=== PATIENT | male | born 1980 | race African-American/Black ===

== ENCOUNTER 2016-11-02 02:11 | Emergency (ER) | payer SELFPAY ==
[2016-11-02] MEDS ORDERED: PENICILLIN V POTASSIUM 500 MG TABLET PO ONE (04:50)
[2016-11-02] MEDS ORDERED: IBUPROFEN 800 MG TABLET PO ONE (04:50)
--- NOTE | 2016-11-02 04:53 | ER Document Report ---
HPI - HPI Patient complains to provider of: dental pain and decay Onset: Other - 1 week Onset/Duration: Gradual, Worse Quality of pain: Throbbing Pain Level: 4 Context: 36 yo male with lower right molar decay and pain for a week, worse last night. Needs it pulled. No facial swelling or fever. Associated Symptoms: None Exacerbated by: Other - chewing Relieved by: Denies Similar symptoms previously: No Recently seen / treated by doctor: No - ROS ROS below otherwise negative: Yes Systems Reviewed and Negative: Yes All other systems reviewed and negative - DERM Skin Color: Normal, [place] Past Medical History - General Information source: Patient - Social History Smoking Status: Current Every Day Smoker Chew tobacco use (# tins/day): No Frequency of alcohol use: None Drug Abuse: None Lives with: Spouse/Significant other Family History: Reviewed & Not Pertinent - Medical History Medical History: Negative Renal/ Medical History: Denies: Hx Peritoneal Dialysis Surgical Hx: Negative Vertical Provider Document - CONSTITUTIONAL Agree With Documented VS: Yes Exam Limitations: No Limitations General Appearance: No Apparent Distress - INFECTION CONTROL TRAVEL OUTSIDE OF THE [place] IN LAST 30 DAYS: No - HEENT HEENT: Normocephalic Notes: decayed molar lower right, no abscess - NECK Neck: Supple. negative: Lymphadenopathy-Left, Lymphadenopathy-Right - RESPIRATORY Respiratory: Breath Sounds Normal, No Respiratory Distress O2 Sat by Pulse Oximetry: 97 - CARDIOVASCULAR Cardiovascular: Regular Rate, Regular Rhythm - NEURO Level of Consciousness: Awake, Alert - DERM Integumentary: Warm, Dry, No Rash Course - Vital Signs Vital signs: Temp Pulse Resp BP Pulse Ox 98.4 F 90 16 129/68 H 97 11/02/16 02:16 11/02/16 02:16 11/02/16 02:16 11/02/16 02:16 11/02/16 02:16 Discharge - Discharge Clinical Impression: dental decay and pain Condition: Good Disposition: HOME, SELF-CARE Instructions: Penicillin V K ([facility]), Toothache ([facility]), Anti-Inflammatory Medication ([facility]), Dentist Additional Instructions: see the dentist Re-Turn to the emergency room any worsening of the symptoms Please complete the patient satisfaction survey if you get one, and return it.. If you do not receive a survey, then you can go to the [facility] website, [email or web address] and place your comments about your very good care. Thank you very much. It was a pleasure being your medical provider today. Prescriptions: Ibuprofen [Motrin 800 mg Tablet] 800 mg PO Q8HP PRN #30 tablet PRN Reason: Penicillin V Potassium [Penicillin Vk 500 mg Tablet] 500 mg PO QID #40 tablet
[2016-11-02 05:46] VITALS: BP 128/67
== END 2016-11-02 05:01 | disposition home or self-care (01) ==
LOC: ER 02:11
DX: K08.89 Other specified disorders of teeth and supporting structures (principal); K02.9 Dental caries, unspecified; F17.200 Nicotine dependence, unspecified, uncomplicated
CPT/HCPCS: 99282

== ENCOUNTER 2017-03-23 14:25 | Emergency (ER) | payer SELFPAY ==
--- NOTE | 2017-03-23 16:27 | ER Document Report ---
ED General - General Chief Complaint: Chest Pain > 30 Stated Complaint: CHEST PAIN Time Seen by Provider: 03/23/17 16:06 Mode of Arrival: Ambulatory Information source: Patient Notes: 36 yr old male smoker presents with sudden right sided pain with deep breathing. pt denies any dvt or pe risk factors. denies any fevers or chills. TRAVEL OUTSIDE OF THE [place] IN LAST 30 DAYS: No - HPI Onset: Just prior to arrival Onset/Duration: Sudden Quality of pain: Sharp Severity: Mild Pain Level: 2 Associated symptoms: Shortness of breath Exacerbated by: Walking, Deep breathing Relieved by: Denies Similar symptoms previously: No Recently seen / treated by doctor: No - Related Data Allergies/Adverse Reactions: No Known Allergies Allergy (Verified 03/23/17 15:01) Past Medical History - Social History Smoking Status: Current Every Day Smoker Cigarette use (# per day): Yes Chew tobacco use (# tins/day): No Smoking Education Provided: No Frequency of alcohol use: None Drug Abuse: None Family History: Reviewed & Not Pertinent Patient has suicidal ideation: No Patient has homicidal ideation: No Renal/ Medical History: Denies: Hx Peritoneal Dialysis Review of Systems - Review of Systems Notes: REVIEW OF SYSTEMS: CONSTITUTIONAL : Denies fever, chills, or sweats. Denies recent illness. EENT: Denies eye, ear, throat, or mouth pain or symptoms. Denies nasal or sinus congestion or discharge. Denies throat, tongue, or mouth swelling or difficulty swallowing. CARDIOVASCULAR: Denies chest pain. Denies palpitations or racing or irregular heart beat. Denies ankle edema. RESPIRATORY: Admits to shortness of breath right-sided chest pain GASTROINTESTINAL: Denies abdominal pain or distention. Denies nausea, vomiting , or diarrhea. Denies blood in vomitus, stools, or per rectum. Denies black, tarry stools. Denies constipation. GENITOURINARY: Denies difficulty urinating, painful urination, burning, frequency, blood in urine, or discharge. MUSCULOSKELETAL: Denies back or neck pain or stiffness. Denies joint pain or swelling. SKIN: Denies rash, lesions or sores. HEMATOLOGIC : Denies easy bruising or bleeding. LYMPHATIC: Denies swollen, enlarged glands. NEUROLOGICAL: Denies confusion or altered mental status. Denies passing out or loss of consciousness. Denies dizziness or lightheadedness. Denies headache. Denies weakness or paralysis or loss of use of either side. Denies problems with gait or speech. Denies sensory loss, numbness, or tingling. Denies seizures. PSYCHIATRIC: Denies anxiety or stress. Denies depression, suicidal ideation, or homicidal ideation. ALL OTHER SYSTEMS REVIEWED AND NEGATIVE. Dictation was performed using [employer] voice recognition software PHYSICAL EXAMINATION: GENERAL: Well-appearing, well-nourished and in no acute distress. HEAD: Atraumatic, normocephalic. EYES: Pupils equal round and reactive to light, extraocular movements intact, sclera anicteric, conjunctiva are normal. ENT: Nares patent, oropharynx clear without exudates. Moist mucous membranes. NECK: Normal range of motion, supple without lymphadenopathy LUNGS: Breath sounds clear to auscultation bilaterally and equal. No wheezes rales or rhonchi. HEART: Regular rate and rhythm without murmurs ABDOMEN: Soft, nontender, nondistended abdomen. No guarding, no rebound. No masses appreciated. Musculoskeletal: Normal range of motion, no pitting or edema. No cyanosis. NEUROLOGICAL: Cranial nerves grossly intact. Normal speech, normal gait. Normal sensory, motor exams PSYCH: Normal mood, normal affect. SKIN: Warm, Dry, normal turgor, no rashes or lesions noted. Physical Exam - Vital signs Vitals: Temp Pulse Resp BP Pulse Ox 98.8 F 62 16 120/73 98 03/23/17 15:02 03/23/17 15:02 03/23/17 15:02 03/23/17 15:02 03/23/17 15:02 Course - Re-evaluation Re-evalutation: 03/23/17 16:27 Chest x-ray has been ordered to rule out pneumothorax, d-dimer ordered to rule out a pulmonary emboli 03/23/17 17:00 chest xray normal, d dimer was negative. pt otherwise looks well , will dc home with close follow up After performing a Medical Screening Examination, I estimate there is LOW risk for ACUTE CORONARY SYNDROME, RESPIRATORY FAILURE, SEPSIS OR MENINGITIS, thus I consider the discharge disposition reasonable. I have reevaluated this patient multiple times and no significant life threatening changes are noted. The patient and I have discussed the diagnosis and risks, and we agree with discharging home with close follow-up. We also discussed returning to the Emergency Department immediately if new or worsening symptoms occur. We have discussed the symptoms which are most concerning (e.g., changing or worsening pain, trouble swallowing or breathing, neck stiffness, fever) that necessitate immediate return. - Vital Signs Vital signs: Temp Pulse Resp BP Pulse Ox 98.8 F 62 16 120/73 98 03/23/17 15:02 03/23/17 15:02 03/23/17 15:02 03/23/17 15:02 03/23/17 15:02 - Diagnostic Test Radiology reviewed: Image reviewed, Reports reviewed - No acute abnormality Discharge - Discharge Clinical Impression: Costochondral chest pain, SOB (shortness of breath) Condition: Stable Disposition: HOME, SELF-CARE Instructions: Chest Wall Pain ([facility]) Additional Instructions: Follow up with your physician tomorrow for further care or return to the ED IMMEDIATELY if symptoms worsen or new concerns occur. If you cannot afford to follow up with your primary care physician a list of low cost clinics have been provided at the end of your discharge papers as well. Prescriptions: Ketorolac Tromethamine [Toradol 10 mg Tablet] 10 mg PO Q8HP PRN #14 tablet PRN Reason:
--- NOTE | 2017-03-23 16:54 | EKG REPORT ---
SEVERITY:- NORMAL ECG - SINUS RHYTHM ST ELEV, PROBABLE NORMAL EARLY REPOL PATTERN : Confirmed by: Francisco J Garzon MD 23-Mar-2017 16:53:32
--- NOTE | 2017-03-23 16:56 | RADIOLOGY REPORT (SQ) ---
EXAM DESCRIPTION: CHEST PA/LAT COMPLETED DATE/TIME: 03/23/2017 4:33 pm REASON FOR STUDY: right sided pain sob COMPARISON: None. EXAM PARAMETERS: NUMBER OF VIEWS: two views TECHNIQUE: Digital Frontal and Lateral radiographic views of the chest acquired. RADIATION DOSE: NA LIMITATIONS: none FINDINGS: LUNGS AND PLEURA: No opacities, masses or pneumothorax. No pleural effusion. MEDIASTINUM AND HILAR STRUCTURES: No masses or contour abnormalities. HEART AND VASCULAR STRUCTURES: Heart normal size. No evidence for failure. BONES: No acute findings. HARDWARE: None in the chest. OTHER: No other significant finding. IMPRESSION: NO SIGNIFICANT RADIOGRAPHIC FINDING IN THE CHEST. TECHNICAL DOCUMENTATION: JOB ID: [id number] [employer]- All Rights Reserved
[2017-03-23] MEDS ORDERED: KETOROLAC TROMETHAMINE 60 MG/2 ML SDV IM ONE (17:02)
[2017-03-23 17:36] VITALS: BP 119/97
== END 2017-03-23 17:10 | disposition home or self-care (01) ==
LOC: ER 14:25
DX: R07.1 Chest pain on breathing (principal); R06.02 Shortness of breath; F17.210 Nicotine dependence, cigarettes, uncomplicated
CPT/HCPCS: 93005; 99285; 96372; 36415; 85379; 71020; 93010; J1885

== ENCOUNTER 2017-10-29 02:32 | Emergency (ER) | payer SELFPAY ==
[2017-10-29] MEDS ORDERED: OXYCODONE-ACETAMINOPHEN 5-325 MG TABLET PO ONE (06:03)
[2017-10-29] MEDS ORDERED: ONDANSETRON 4 MG TAB.RAPDIS PO ONE (06:03)
[2017-10-29] MEDS ORDERED: PENICILLIN V POTASSIUM 500 MG TABLET PO ONE (06:03)
--- NOTE | 2017-10-29 06:05 | ER Document Report ---
HPI - HPI Patient complains to provider of: dental pain Pain Level: 5 Context: Patient is a 37-year-old male comes emergency department for chief complaint of dental pain on the left side since yesterday. He states he has had dental fractures, infections in the past, states he came for antibiotics. He does not have a dentist, also asked for referral. Patient denies difficulty swallowing, fever, neck pain, or any other complaints. He takes no daily medications. No recent antibiotics for dental infection. - CONSTITUTIONAL Constitutional: DENIES: Fever, Chills - EENT EENT: DENIES: Sore Throat, Ear Pain, Eye problems - NEURO Neurology: DENIES: Headache, Weakness, Vision blurred, Dizzinesss / Vertigo - CARDIOVASCULAR Cardiovascular: DENIES: Chest pain - RESPIRATORY Respiratory: DENIES: Trouble Breathing, Coughing - GASTROINTESTINAL Gastrointestinal: DENIES: Abdominal Pain, Black / Bloody Stools - URINARY Urinary: DENIES: Dysuria, Urgency, Frequency - MUSCULOSKELETAL Musculoskeletal: DENIES: Extremity pain Past Medical History - General Information source: Patient - Social History Smoking Status: Current Some Day Smoker Drug Abuse: None Lives with: Family Family History: Reviewed & Not Pertinent Patient has suicidal ideation: No Patient has homicidal ideation: No - Medical History Medical History: Negative Renal/ Medical History: Denies: Hx Peritoneal Dialysis Surgical Hx: Negative - Immunizations Hx Diphtheria, Pertussis, Tetanus Vaccination: Yes Vertical Provider Document - CONSTITUTIONAL General Appearance: WD/WN, Mild Distress - Patient holding the left side of his face - INFECTION CONTROL TRAVEL OUTSIDE OF THE [place] IN LAST 30 DAYS: No - HEENT HEENT: Atraumatic, Normocephalic Mouth Diagram: 1 - Dental caries with mild erythema of the gumline, no swelling, induration, fluctuance, or other abnormality noted - NECK Neck: Normal Inspection - RESPIRATORY Respiratory: Breath Sounds Normal, No Respiratory Distress O2 Sat by Pulse Oximetry: 98 - CARDIOVASCULAR Cardiovascular: Regular Rate, Regular Rhythm - GI/ABDOMEN Gastrointestinal: Abdomen Soft, Abdomen Non-Tender - NEURO Level of Consciousness: Awake, Alert, Appropriate - DERM Integumentary: Warm, Dry, No Rash Course - Vital Signs Vital signs: Temp Pulse Resp BP Pulse Ox 97.9 F 66 18 145/89 H 98 10/29/17 02:47 10/29/17 02:47 10/29/17 02:47 10/29/17 02:47 10/29/17 02:47 Discharge - Discharge Clinical Impression: Dental infection Condition: Stable Disposition: HOME, SELF-CARE Additional Instructions: Your evaluation is consistent with a dental infection. Take the penicillin as prescribed. Follow-up with the dental referral for additional evaluation and management. Return if you worsen including swelling of the face or any other concerning symptoms. Prescriptions: Penicillin V Potassium [Penicillin Vk 500 mg Tablet] 500 mg PO BID #20 tablet Forms: Return to Work, Elevated Blood Pressure Referrals: [facility] [Provider Group] - Follow up in 1 week
[2017-10-29] MEDS ORDERED: HYDROCODONE/ACETAMINOPHEN 5-325 MG (6 TAB/ER DISP) PO PRN (06:06)
[2017-10-29 06:20] VITALS: BP 140/80
== END 2017-10-29 06:27 | disposition home or self-care (01) ==
LOC: ER 02:32
DX: K04.7 Periapical abscess without sinus (principal); K02.9 Dental caries, unspecified; K08.89 Other specified disorders of teeth and supporting structures
CPT/HCPCS: 99282; S0119

== ENCOUNTER 2017-11-03 06:53 | Emergency (ER) | payer SELFPAY ==
[2017-11-03 07:02] VITALS: BP 149/87
[2017-11-03] MEDS ORDERED: BUPIVACAINE HCL 0.25% /EPINEPHRINE INJ/PF 30 ML SDV INFIL PRN (07:30)
[2017-11-03] MEDS ORDERED: CLINDAMYCIN HCL 150 MG CAPSULE PO ONE (07:38)
--- NOTE | 2017-11-03 07:38 | ER Document Report ---
ED Oral Problem - General Chief Complaint: Toothache Stated Complaint: TOOTH PAIN Time Seen by Provider: 11/03/17 07:11 Mode of Arrival: Ambulatory Information source: Patient Notes: Patient is a 37-year-old male who presents to the ER today for left lower dental swelling and pain. Patient has been seen here in the emergency department and placed on penicillin, given hydrocodone which she states has not been helping. He was seen here 5 days ago. Patient does not have a dentist. He denies any difficulty swallowing or breathing. He admits to tasting a "bad taste" inside his mouth. TRAVEL OUTSIDE OF THE [place] IN LAST 30 DAYS: No - Related Data Allergies/Adverse Reactions: No Known Allergies Allergy (Verified 03/23/17 15:01) Past Medical History - General Information source: Patient - Social History Smoking Status: Current Some Day Smoker Chew tobacco use (# tins/day): No Frequency of alcohol use: Occasional Drug Abuse: None Family History: Reviewed & Not Pertinent Patient has suicidal ideation: No Patient has homicidal ideation: No Renal/ Medical History: Denies: Hx Peritoneal Dialysis - Immunizations Hx Diphtheria, Pertussis, Tetanus Vaccination: Yes Review of Systems - Review of Systems Constitutional: No symptoms reported EENT: See HPI Cardiovascular: No symptoms reported Respiratory: No symptoms reported Gastrointestinal: No symptoms reported Genitourinary: No symptoms reported Male Genitourinary: No symptoms reported Musculoskeletal: No symptoms reported Skin: No symptoms reported Hematologic/Lymphatic: No symptoms reported Neurological/Psychological: No symptoms reported Physical Exam - Vital signs Vitals: Temp Pulse Resp BP Pulse Ox 97.4 F 68 18 149/87 H 100 11/03/17 07:01 11/03/17 07:01 11/03/17 07:01 11/03/17 07:01 11/03/17 07:01 - Notes Notes: PHYSICAL EXAMINATION: GENERAL: Uncomfortable appearing, but in no acute distress. HEAD: Atraumatic, normocephalic. EYES: Pupils equal round and reactive to light, extraocular movements intact, sclera anicteric, conjunctiva are normal. ENT: oropharynx clear without exudates. Moist mucous membranes. dental caries, poor dentition, edema and tenderness to left lower tooth #19, no obvious fluctuance or induration, drainage NECK: Normal range of motion, supple without lymphadenopathy LUNGS: CTAB and equal. No wheezes rales or rhonchi. HEART: Regular rate and rhythm without murmurs EXTREMITIES: Normal range of motion, no pitting edema. No cyanosis. NEUROLOGICAL: Cranial nerves grossly intact. Normal sensory/motor exams. PSYCH: Normal mood, normal affect. SKIN: Warm, Dry, normal turgor, no rashes or lesions noted Course - Vital Signs Vital signs: Temp Pulse Resp BP Pulse Ox 97.4 F 68 18 149/87 H 100 11/03/17 07:01 11/03/17 07:01 11/03/17 07:01 11/03/17 07:01 11/03/17 07:01 Procedures - Additional Procedures dental block Time performed: 08:13 Additional Procedures: Other - local dental block with bupivacaine/epi 0.5%, 4cc to buccal fold/gum line at tooth #19, pt tolerated well, nothing was able to be aspirated Discharge - Discharge Clinical Impression: Dental infection Condition: Stable Disposition: HOME, SELF-CARE Additional Instructions: Return immediately for any new or worsening symptoms. Follow up with dentist, call tomorrow to make followup appointment. Prescriptions: Clindamycin HCl 300 mg PO TID #30 capsule Naproxen 500 mg PO BID #30 tablet Referrals: [facility] [Provider Group] - Follow up as needed
[2017-11-03] MEDS ORDERED: BUPIVACAINE HCL 0.5%-EPI 1:200000 INJ/PF 30 ML VIAL INJ ONE ×2 (07:50→08:30)
== END 2017-11-03 08:32 | disposition home or self-care (01) ==
LOC: ER 06:53
DX: K04.7 Periapical abscess without sinus (principal); K08.89 Other specified disorders of teeth and supporting structures; F17.200 Nicotine dependence, unspecified, uncomplicated
CPT/HCPCS: 99282; 64400; J3490

== ENCOUNTER 2017-11-10 21:51 | Emergency (ER) | payer SELFPAY ==
[2017-11-10 21:56] VITALS: BP 145/92
--- NOTE | 2017-11-11 00:10 | ER Document Report ---
ED Medical Screen (RME) - General Chief Complaint: Nausea/Vomiting Stated Complaint: VOMITING Time Seen by Provider: 11/11/17 00:08 Mode of Arrival: Ambulatory Information source: Patient Notes: 37-year-old male presented to ED for complaint of abdominal pain nausea vomiting fever and chills. He states that a week ago he was seen for dental pain. He was started on antibiotics and pain medications. He states about 4 days ago he came in and got new antibiotics because the first ones were not working. Yesterday he went to help and they did help and then started having vomiting abdominal pain chills and shivering. He states he stopped his pain medicine and his antibiotics in the day he has had no vomiting no pain medicines and no antibiotics. I have greeted and performed a rapid initial assessment of this patient. A comprehensive ED assessment and evaluation of the patient, analysis of test results and completion of medical decision making process will be conducted by an additional ED providers. TRAVEL OUTSIDE OF THE [place] IN LAST 30 DAYS: No - Related Data Allergies/Adverse Reactions: No Known Allergies Allergy (Verified 03/23/17 15:01) Past Medical History Renal/ Medical History: Denies: Hx Peritoneal Dialysis - Immunizations Hx Diphtheria, Pertussis, Tetanus Vaccination: Yes Physical Exam - Vital signs Vitals: Temp Pulse Resp BP Pulse Ox 98.3 F 86 20 145/92 H 98 11/10/17 21:55 11/10/17 21:55 11/10/17 21:55 11/10/17 21:55 11/10/17 21:55 Course - Vital Signs Vital signs: Temp Pulse Resp BP Pulse Ox 98.3 F 86 20 145/92 H 98 11/10/17 21:55 11/10/17 21:55 11/10/17 21:55 11/10/17 21:55 11/10/17 21:55
[2017-11-11] MEDS ORDERED: ONDANSETRON 4 MG TAB.RAPDIS PO ONE (00:11)
[2017-11-11] MEDS ORDERED: NORMAL SALINE 1000 ML 1,000 ML IV ONE (00:19)
[2017-11-11] MEDS ORDERED: ONDANSETRON HCL INJ/PF 4 MG/2 ML SDV IV ONE (00:19)
[2017-11-11 01:30] LABS: ALANINE AMINOTRANSFERASE 35 U/L (21-72); ALBUMIN 4.8 g/dL (3.5-5.0); ALKALINE PHOSPHATASE 48 U/L (38-126); ANION GAP 10 (5-19); ASPARTATE AMINO TRANSFERASE 29 U/L (17-59); BILIRUBIN,DIRECT 0.5 mg/dL (0.0-0.4); BILIRUBIN,TOTAL 0.5 mg/dL (0.2-1.3); BLOOD UREA NITROGEN 21 mg/dL (7-20); CALCIUM 10.1 mg/dL (8.4-10.2); CARBON DIOXIDE 29 mmol/L (22-30); CHLORIDE 104 mmol/L (98-107); GLUCOSE 90 mg/dL (75-110); LIPASE 72.9 U/L (23-300); POTASSIUM 4.3 mmol/L (3.6-5.0); SODIUM 143.1 mmol/L (137-145)
[2017-11-11] MEDS ORDERED: BENZONATATE 100 MG CAPSULE PO ONE (01:31)
[2017-11-11] MEDS ORDERED: KETOROLAC TROMETHAMINE INJ/PF 30 MG/1 ML SDV IV ONE (01:31)
--- NOTE | 2017-11-11 01:35 | ER Document Report ---
ED General - General Chief Complaint: Jaw Pain Stated Complaint: Nausea Time Seen by Provider: 11/11/17 00:08 Mode of Arrival: Ambulatory Notes: Patient is a 37-year-old male without past medical history recently seen in the emergency department for infected left posterior mandibular tooth with associated pain. Patient reports that he has been taking the clindamycin as prescribed continues to have ongoing throbbing, constant, aching pain to the molar. He reports that he has been using naproxen and Tylenol with moderate improvement of the pain. Nothing worsens the pain other than eating. He has a scheduled follow-up with a dentist states that they informed him that the antibiotic course needed to be completed before they could remove the tooth. He notes that he has had general muscle aches chills intermittently which prompted him to return to the emergency department. He has not had a recorded fever. He denies vomiting but notes that he has been nauseated. He denies any headache, neck pain, altered mental status, or meningismus. TRAVEL OUTSIDE OF THE [place] IN LAST 30 DAYS: No - Related Data Allergies/Adverse Reactions: No Known Allergies Allergy (Verified 03/23/17 15:01) Past Medical History - General Information source: Patient - Social History Smoking Status: Never Smoker Frequency of alcohol use: None Drug Abuse: None Lives with: Family Family History: Reviewed & Not Pertinent Patient has suicidal ideation: No Patient has homicidal ideation: No Renal/ Medical History: Denies: Hx Peritoneal Dialysis - Immunizations Hx Diphtheria, Pertussis, Tetanus Vaccination: Yes Review of Systems - Review of Systems Notes: Constitutional: Negative for fever, positive for chills HENT: Negative for sore throat, positive for dental pain Eyes: Negative for visual changes. Cardiovascular: Negative for chest pain. Respiratory: Negative for shortness of breath. Gastrointestinal: Positive for nausea Genitourinary: Negative for dysuria. Musculoskeletal: Negative for back pain. Skin: Negative for rash. Neurological: Negative for headaches, weakness or numbness. 10 point ROS negative except as marked above and in HPI. Physical Exam - Vital signs Vitals: Temp Pulse Resp BP Pulse Ox 98.3 F 86 20 145/92 H 98 11/10/17 21:55 11/10/17 21:55 11/10/17 21:55 11/10/17 21:55 11/10/17 21:55 Interpretation: Hypertensive Notes: PHYSICAL EXAMINATION: GENERAL: Well-appearing, well-nourished and in no acute distress. HEAD: Atraumatic, normocephalic. EYES: Pupils equal round and reactive to light, extraocular movements intact, sclera anicteric, conjunctiva are normal. ENT: nares patent, oropharynx clear without exudates. No oropharyngeal edema or swelling. Moderately dry mucous membranes. The right most posterior left mandibular molar has a cracking and some mild swelling at the gumline without any obvious fluid collection NECK: Normal range of motion, supple without lymphadenopathy LUNGS: Breath sounds clear to auscultation bilaterally and equal. No wheezes rales or rhonchi. HEART: Regular rate and rhythm without murmurs ABDOMEN: Soft, nontender, normoactive bowel sounds. No guarding, no rebound. No masses appreciated. EXTREMITIES: Normal range of motion, no pitting or edema. No cyanosis. NEUROLOGICAL: No focal neurological deficits. Moves all extremities spontaneously and on command. PSYCH: Normal mood, normal affect. SKIN: Warm, Dry, normal turgor, no rashes or lesions noted. Course - Re-evaluation Re-evalutation: 11/11/17 01:32 Patient presents with nausea, ongoing dental pain, and feeling generally unwell for the past several days. Patient is being treated with clindamycin currently for an infected left lower molar. He is otherwise nontoxic in appearance, vitals within normal limits, no vomiting or diarrhea. Physical examination is notable only for an obviously infected left mandibular posterior molar infection without any airway compromise, evidence of Familia angina or significant neck swelling or induration. I inserted the patient continue to take clindamycin as prescribed, follow up with dentistry, and have provided him with analgesic support here in the emergency department. At this time will discharge with return precautions and follow-up recommendations. Verbal discharge instructions given a the bedside and opportunity for questions given. Medication warnings reviewed. Patient is in agreement with this plan and has verbalized understanding of return precautions and the need for primary care follow-up in the next 24-72 hours. - Vital Signs Vital signs: Temp Pulse Resp BP Pulse Ox 98.3 F 86 20 145/92 H 98 11/10/17 21:55 11/10/17 21:55 11/10/17 21:55 11/10/17 21:55 03/26/18 21:55 - Laboratory Result Diagrams: 11/11/17 00:32 Laboratory results interpreted by me: 11/11/17 00:32 BUN 21 H Direct Bilirubin 0.5 H Discharge - Discharge Clinical Impression: Dental infection, Body aches, Nausea Condition: Good Disposition: HOME, SELF-CARE Additional Instructions: You have been seen for dental pain. It is very important that you follow-up with a dentist for definitive care as we discussed. Please return if you develop fever greater than 101, swelling in your face, vomiting, difficulty breathing or swallowing, or any other symptoms that are concerning to you. For your pain: Take ibuprofen 600 mg and acetaminophen 1000 mg every 6 hours together as needed for pain. Please continue to take your antibiotics as directed.
== END 2017-11-11 01:50 | disposition home or self-care (01) ==
LOC: ER 21:51
DX: K04.7 Periapical abscess without sinus (principal); M79.1 Myalgia; R11.0 Nausea; R68.84 Jaw pain; K08.89 Other specified disorders of teeth and supporting structures
CPT/HCPCS: 99283; 96361; 96374; 96375; 36415; 83690; 80053; J1885; J2405; J7030

== ENCOUNTER 2017-12-04 23:09 | Emergency (ER) | payer SELFPAY ==
[2017-12-05] MEDS ORDERED: IBUPROFEN 600 MG TABLET PO ONE (00:55)
[2017-12-05] MEDS ORDERED: PENICILLIN V POTASSIUM 500 MG TABLET PO ONE (00:55)
--- NOTE | 2017-12-05 01:00 | ER Document Report ---
ED Oral Problem - General Chief Complaint: Mouth Problem Stated Complaint: MOUTH PAIN Time Seen by Provider: 12/05/17 00:55 Mode of Arrival: Ambulatory Information source: Patient TRAVEL OUTSIDE OF THE [place] IN LAST 30 DAYS: No - HPI Patient complains to provider of: Toothache Notes: Patient is here with complaints of left upper and lower dental pain. He was seen here a few times over the last month. He has not followed up with a dentist. States that over the last few days he feels like he starting to get an abscess in his left upper and lower tooth again. No fever. No difficulty breathing or swallowing. He does complain of some pain in his left anterior neck where he feels a lymph node that is swollen. He denies any nausea, vomiting, diarrhea. No chest pain or shortness of breath. No rash. No injury. Nothing makes the pain better or worse. He denies any other complaints at this time. - Related Data Allergies/Adverse Reactions: No Known Allergies Allergy (Verified 03/23/17 15:01) Past Medical History - Social History Smoking Status: Current Every Day Smoker Family History: Reviewed & Not Pertinent Renal/ Medical History: Denies: Hx Peritoneal Dialysis - Immunizations Hx Diphtheria, Pertussis, Tetanus Vaccination: Yes Review of Systems - Review of Systems -: Yes All other systems reviewed and negative Physical Exam - Vital signs Vitals: Temp Pulse Resp BP Pulse Ox 97.9 F 83 20 130/73 H 98 12/04/17 23:16 12/04/17 23:16 12/04/17 23:16 12/04/17 23:16 12/04/17 23:16 - Notes Notes: GENERAL: alert, cooperative, nontoxic, no distress. HEAD: normocephalic, atraumatic EYES: conjunctiva pink without discharge, no external redness or swelling. EARS: no external swelling, no external redness NOSE: atraumatic, no external swelling MOUTH/THROAT: mucous membranes moist and pink. Posterior pharynx pink without erythema or swelling. Voice is normal. No trismus or drooling. No peritonsillar abscess. Widespread dental decay. Significant dental decay to the left upper and lower third molars. I do not appreciate any gum swelling or drainable abscess. There is no facial swelling or jaw swelling. No sublingual swelling or induration. NECK: soft, supple, full range of motion, no meningismus. Left anterior cervical lymphadenopathy. CHEST: no distress, lungs clear and equal throughout. No wheezing, rales, rhonchi. CARDIAC: regular rate and rhythm, no murmur, normal capillary refill, normal pulses. BACK: full range of motion, no CVA tenderness. EXTREMITIES: full range of motion of all extremities. No redness, no swelling. NEURO: alert and oriented 3, no focal deficits, full range of motion of all extremities. PYSCH: appropriate mood, affect. Patient is cooperative. SKIN: pink, warm, dry, no rash. Course - Re-evaluation Re-evalutation: 12/05/17 00:57 Patient is nontoxic appearing with stable vitals. Is here with complaints of left upper and lower dental pain. Patient is noted to have widespread dental decay. I do not appreciate any drainable abscesses at this time. There is no sign of Familia's angina. He is in no distress. Airways patent. Patient will be discharged home on Pen-Vee K and Voltaren. He will be given a dose of Pen- Vee K here in emergency department. He states that he has dental referrals from his previous visits he is in the process of trying to get into see a dentist once his "infections go away ". Patient is instructed to follow-up if he has worsening pain, high fever, difficulty breathing or swallowing, or for any further concerns. The patient's emergency department workup and current diagnosis were explained to the patient and or family. Follow-up instructions were provided. Medications if prescribed were discussed. Instructions for when to return to the emergency department including specific worrisome symptoms were discussed with the patient and/or family. The patient is noted to have elevated blood pressure during today's emergency department visit. The patient was informed of this finding. The patient was instructed that this may be related to pre-hypertension and requires further evaluation with a primary care provider. The patient has no hypertensive symptoms at this time. - Vital Signs Vital signs: Temp Pulse Resp BP Pulse Ox 97.9 F 83 20 130/73 H 98 12/04/17 23:16 12/04/17 23:16 12/04/17 23:16 12/04/17 23:16 12/04/17 23:16 Discharge - Discharge Clinical Impression: Dental cavities, Pain due to dental caries Condition: Stable Disposition: HOME, SELF-CARE Instructions: Dentist, Dental Infection or Abscess ([facility]) Additional Instructions: Take medications as prescribed. Follow-up with a dentist at the next available appointment. Follow-up sooner for increasing pain, fever, swelling, difficulty breathing or swallowing, persistent vomiting, or for any further concerns. Your blood pressure was elevated during today's visit. Have this rechecked with your doctor. Prescriptions: Diclofenac Sodium [Voltaren 50 Mg Monae.] 50 mg PO BID #20 tablet. Penicillin V Potassium [Penicillin Vk 500 mg Tablet] 500 mg PO QID #40 tablet Forms: Elevated Blood Pressure, Smoking Cessation Education Referrals: [facility] [Provider Group] - Follow up as needed [facility] [Provider Group] - Follow up as needed
[2017-12-05 01:36] VITALS: BP 133/76
== END 2017-12-05 01:36 | disposition home or self-care (01) ==
LOC: ER 23:09
DX: K02.9 Dental caries, unspecified (principal); F17.200 Nicotine dependence, unspecified, uncomplicated
CPT/HCPCS: 99282

== ENCOUNTER 2018-05-17 15:52 | Emergency (ER) | payer SELFPAY ==
[2018-05-17] MEDS ORDERED: MORPHINE SULFATE 10 MG/ML INJ IV ONE (16:17)
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
[2018-05-17] MEDS ORDERED: METHYLPREDNISOLONE INJ 125 MG/2 ML SDV IV ONE (16:32)
[2018-05-17] MEDS ORDERED: FAMOTIDINE INJ/PF 20 MG/2 ML SDV IV ONE (16:32)
[2018-05-17] MEDS ORDERED: DIPHENHYDRAMINE HCL 50 MG/ML VIAL IV ONE (16:32)
[2018-05-17 16:38] LABS: ABSOLUTE LYMPHOCYTES (AUTO) 1.5 10^3/uL (0.5-4.7); ABSOLUTE MONOCYTES (AUTO) 0.8 10^3/uL (0.1-1.4); ABSOLUTE NEUT (AUTO) 8.8 10^3/uL (1.7-8.2); BASOPHILS % (AUTO) 0.2 % (0-2); EOSINOPHILS % (AUTO) 0.2 % (0-6); HEMATOCRIT 47.8 % (37.9-51.0); HEMOGLOBIN 16.2 g/dL (13.5-17.0); LYMPHOCYTES % (AUTO) 13.8 % (13-45); MEAN CORPUSCULAR HGB CONC 33.9 g/dL (32.0-36.0); MEAN CORPUSCULAR VOLUME 95 fl (80-97); MONOCYTES % (AUTO) 6.8 % (3-13); PLATELET COUNT 178 10^3/uL (150-450); RED BLOOD COUNT 5.05 10^6/uL (4.35-5.55); RED CELL DISTRIBUTION WIDTH 13.9 % (11.5-14.0); TOTAL CELLS COUNTED % (AUTO) 100 %; WHITE BLOOD COUNT 11.2 10^3/uL (4.0-10.5)
[2018-05-17] MEDS ORDERED: DIPHENHYDRAMINE HCL 50 MG/ML VIAL ONE (17:00)
[2018-05-17 17:05] LABS: ALANINE AMINOTRANSFERASE 18 U/L (21-72); ALKALINE PHOSPHATASE 67 U/L (38-126); ANION GAP 12 (5-19); ASPARTATE AMINO TRANSFERASE 42 U/L (17-59); BILIRUBIN,DIRECT 0.3 mg/dL (0.0-0.4); BILIRUBIN,TOTAL 0.6 mg/dL (0.2-1.3); BLOOD UREA NITROGEN 12 mg/dL (7-20); CALCIUM 10.2 mg/dL (8.4-10.2); CARBON DIOXIDE 27 mmol/L (22-30); CHLORIDE 106 mmol/L (98-107); GLUCOSE 74 mg/dL (75-110); LIPASE 29.4 U/L (23-300); POTASSIUM 4.2 mmol/L (3.6-5.0); SODIUM 145.1 mmol/L (137-145); TOTAL PROTEIN 8.6 g/dL (6.3-8.2)
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
[2018-05-17 19:27] LABS: APPEARANCE,URINE CLEAR; BILIRUBIN,URINE NEGATIVE (NEGATIVE); COLOR,URINE YELLOW; GLUCOSE, URINE NEGATIVE (NEGATIVE); KETONES,URINE 20 mg/dL (NEGATIVE); LEUKOCYTE ESTERASE,URINE NEGATIVE (NEGATIVE); NITRITE,URINE NEGATIVE (NEGATIVE); PROTEIN,URINE NEGATIVE (NEGATIVE); URINE SPECIFIC GRAVITY 1.046
[2018-05-17] MEDS ORDERED: METHOCARBAMOL 750 MG TABLET PO ONE (19:54)
[2018-05-17] MEDS ORDERED: LIDOCAINE 5% (700 MG) TRANSDERMAL ADH..PATCH TP ONE (19:54)
[2018-05-17] MEDS ORDERED: HYDROCODONE/ACETAMINOPHEN 5-325 MG TABLET PO ONE (19:55)
[2018-05-17 20:21] VITALS: BP 124/79
== END 2018-05-17 20:30 | disposition home or self-care (01) ==
LOC: ER 15:52
DX: S20.212A Contusion of left front wall of thorax, initial encounter (principal); S20.221A Contusion of right back wall of thorax, initial encounter; R07.81 Pleurodynia; R55 Syncope and collapse; Y04.8XXA Assault by other bodily force, initial encounter; Y93.89 Activity, other specified; Y92.59 Other trade areas as the place of occurrence of the external cause; F17.210 Nicotine dependence, cigarettes, uncomplicated; F12.10 Cannabis abuse, uncomplicated; Z91.013 Allergy to seafood
CPT/HCPCS: 99284; 36415; 83690; 85025; 80053; 81001; 71260; 74177; J1200; J3490; J2930; J2270; S0028

== ENCOUNTER 2019-01-09 19:43 | Emergency (ER) | payer SELFPAY ==
[2019-01-09] MEDS ORDERED: DIPH/PERTUSS(ACELL)/TETANUS VAC/PF 0.5 ML SYR (>=10YO) IM ONE (20:07)
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
[2019-01-09] MEDS ORDERED: HYDROMORPHONE HCL INJ/PF 2 MG/ML AMPULE IM ONE (20:57)
[2019-01-09] MEDS ORDERED: PROMETHAZINE HCL 25 MG TABLET PO ONE (20:57)
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
[2019-01-09] MEDS ORDERED: HYDROCODONE/ACETAMINOPHEN 5-325 MG (6 TAB/ER DISP) PO PRN (23:01)
[2019-01-09 23:30] VITALS: BP 101/54
== END 2019-01-09 23:29 | disposition home or self-care (01) ==
LOC: ER 19:43
DX: S50.312A Abrasion of left elbow, initial encounter (principal); S50.311A Abrasion of right elbow, initial encounter; S20.412A Abrasion of left back wall of thorax, initial encounter; S20.411A Abrasion of right back wall of thorax, initial encounter; R07.81 Pleurodynia; M54.2 Cervicalgia; V86.56XA Driver of dirt bike or motor/cross bike injured in nontraffic accident, initial encounter
CPT/HCPCS: 99284; 96372; 90471; 73070; 73564; 71101; 72125; 90715; J1170; L0120

== ENCOUNTER 2019-10-01 19:27 | Emergency (ER) | payer SELFPAY ==
--- NOTE | 2019-10-01 20:30 | ER Document Report ---
HPI - HPI Time Seen by Provider: 10/01/19 20:23 Pain Level: 5 Notes: Patient is a 39-year-old male no significant past medical history who presents complaining of nasal congestion and discharge as well as bilateral eye redness, irritation, and drainage with matting. Patient states that the left eye was the first to start up about 4 days ago and he has since developed in his right eye. He does not wear contact lenses. He denies any obvious foreign body to his eye or foreign body sensation. He does describe the discomfort as irritation. Denies any headache, fever, head injury, neck pain, changes in vision/speech/mentation/hearing, sore throat, chest pain, palpitations, syncope, cough, shortness of breath, wheeze, dyspnea, abdominal pain, nausea/vomiting/diarrhea, urinary retention, dysuria, hematuria, or rash. - ROS Systems Reviewed and Negative: Yes All other systems reviewed and negative Past Medical History - Social History Smoking Status: Current Every Day Smoker Family History: Reviewed & Not Pertinent Patient has suicidal ideation: No Patient has homicidal ideation: No Renal/ Medical History: Denies: Hx Peritoneal Dialysis - Immunizations Hx Diphtheria, Pertussis, Tetanus Vaccination: Yes Vertical Provider Document - CONSTITUTIONAL Agree With Documented VS: Yes Notes: PHYSICAL EXAMINATION: GENERAL: Well-appearing, well-nourished and in no acute distress. A&Ox4 HEAD: Atraumatic, normocephalic. EYES: Pupils equal round and reactive to light, extraocular movements intact, sclera anicteric, bilateral conjunctiva are injected with discharge and matting. No obvious foreign body. Non-tender to palp of the globe and eye itself. No surrounding erythema or swelling noted. ENT: Nares patent and with clear discharge. oropharynx clear without exudates. No tonsilar hypertrophy or erythema. Moist mucous membranes. No sinus tenderness. Uvula midline. No palatine shift. No airway compromise. No drooling or hoarseness. NECK: Normal range of motion, supple without lymphadenopathy. No rigidity/meningismus. LUNGS: Breath sounds clear to auscultation bilaterally and equal. No wheezes rales or rhonchi. HEART: Regular rate and rhythm without murmurs, rubs, gallops. Musculoskeletal: Ext b/l: FROM to passive/active. Strength 5+/5. Extremities: No cyanosis, clubbing, or edema b/l. Peripheral pulses 2+. Capillary refill less than 3 seconds. NEUROLOGICAL: Cranial nerves grossly intact. Normal speech, normal gait. Normal sensory, motor exams PSYCH: Normal mood, normal affect. SKIN: Warm, Dry, normal turgor, no rashes or lesions noted. - INFECTION CONTROL TRAVEL OUTSIDE OF THE [place] IN LAST 30 DAYS: No Course - Re-evaluation Re-evalutation: 10/01/19 20:35 Patient is an afebrile, well-hydrated, 39-year-old male who presents to the emergency department with bilateral conjunctivitis. Symptoms most consistent with viral vs bacterial infection at this time. Vitals are acceptable without significant tachycardia, tachypnea, or hypoxia. PE is otherwise unremarkable. Patient is nontoxic-appearing and is able to tolerate p.o. without difficulty. No labs or imaging warranted. Low suspicion for any retained corneal or lid foreign body, deep space infection including orbital cellulitis/abscess, acute glaucoma, penetrating globe injury, retinal detachment, meningitis, sepsis, fracture, compartment syndrome. I will send home with a prescription for Polytrim to use as directed. Conservative measures otherwise for symptoms with proper handwashing. Recheck with your PCM in 3-5 days. Consider follow-up with ophthalmology. Return to the ED with any worsening/concerning symptoms otherwise as reviewed in discharge. Patient is in agreement. Discharge - Discharge Clinical Impression: Bilateral conjunctivitis Qualifiers: Conjunctivitis type: unspecified Qualified Code(s): H10.9 - Unspecified conjunctivitis Condition: Stable Disposition: HOME, SELF-CARE Instructions: Conjunctivitis ([facility]) Additional Instructions: Keep eyes clean Avoid scratching/touching eyes Wash hands regularly Use eye drops as directed Maintain adequate fluid intake tylenol/ibuprofen as needed over the counter cold medication as needed for symptoms F/u: with your PCM in 2-3 days for a recheck Consider consult with Ophthalmology for ongoing/worsening symptoms Return to the ED with any worsening symptoms and/or development of fever, headache, changes in vision, eye pain, worsening eye redness, redness around the eyes, purulent discharge, sore throat, facial swelling, neck pain/stiffness, chest pain, palpitations, syncope, shortness of breath, trouble breathing, abdominal pain, n/v/d, blood in stool/urine, dysuria, or other worsening symptoms that are concerning to you. Prescriptions: Polymyxin B Sulf/Trimethoprim [Polytrim Eye Drops] 1 drop OU Q3H #10 ml Forms: Smoking Cessation Education, Elevated Blood Pressure Referrals: SHELIA THOMAS MD [ACTIVE STAFF] - Follow up as needed
[2019-10-01 20:36] VITALS: BP 134/82
== END 2019-10-01 20:35 | disposition home or self-care (01) ==
LOC: ER 19:27
DX: H10.9 Unspecified conjunctivitis (principal); R09.81 Nasal congestion; F17.200 Nicotine dependence, unspecified, uncomplicated
CPT/HCPCS: 99283

== ENCOUNTER 2019-10-08 11:00 | Emergency (ER) | payer SELFPAY ==
--- NOTE | 2019-10-08 11:28 | ER Document Report ---
ED Medical Screen (RME) - General Chief Complaint: Eye Problem Stated Complaint: EYE PROBLEM Time Seen by Provider: 10/08/19 11:20 TRAVEL OUTSIDE OF THE [place] IN LAST 30 DAYS: No - HPI Notes: 10/08/19 11:26 Patient is a 39-year-old male complaining of worsening eye redness and pain with intermittent blurring of vision since his visit a week ago. Patient states that he has not been seen by an manager mobility throughout this time. Patient is complaining of eye pain worse than it was when he was here initially. No fever. He has been using Polytrim. I have treated and performed a rapid initial assessment of this patient. A comprehensive ED assessment and evaluation of the patient, analysis of test results and completion of medical decision making process will be conducted by additional ED providers. PHYSICAL EXAMINATION: GENERAL: no acute distress. A&Ox4. Answers questions appropriately. Eyes: There is injection of his conjunctiva b/l, much more red than initial visit. + light sensitivity. - Related Data Allergies/Adverse Reactions: egg Allergy (Verified 10/08/19 11:19) seafood Allergy (Uncoded 10/08/19 11:19) Past Medical History Renal/ Medical History: Denies: Hx Peritoneal Dialysis - Immunizations Hx Diphtheria, Pertussis, Tetanus Vaccination: Yes Physical Exam - Vital signs Vitals: Temp Pulse Resp BP Pulse Ox 97.6 F 71 16 133/78 H 100 10/08/19 11:11 10/08/19 11:11 10/08/19 11:11 10/08/19 11:11 10/08/19 11:11 Course - Vital Signs Vital signs: Temp Pulse Resp BP Pulse Ox 97.6 F 71 16 133/78 H 100 10/08/19 11:11 10/08/19 11:11 10/08/19 11:11 10/08/19 11:11 10/08/19 11:11
--- NOTE | 2019-10-08 12:07 | ER Document Report ---
ED Eye Complaint - General Chief Complaint: Eye Pain Stated Complaint: EYE PROBLEM Time Seen by Provider: 10/08/19 11:20 Notes: 39-year-old man presents to the emergency department with a history of approximately 1 week ago developed sensation in his left eye of a possible foreign body. States that he was having tear increased tearing and associated discomfort. The symptoms later spread to the right. He was seen in emergency department and treated with antibiotic drops. He states that he began having itching and worsening symptoms while using the drops and the clear drainage became yellowish. He now has very injected sclera and conjunctiva with some mild swelling in the lower lids. He denies visual changes but has severe photophobia and pain. TRAVEL OUTSIDE OF THE [place] IN LAST 30 DAYS: No - Related Data Allergies/Adverse Reactions: egg Allergy (Verified 10/08/19 11:19) seafood Allergy (Uncoded 10/08/19 11:19) Past Medical History - Social History Smoking Status: Current Every Day Smoker Chew tobacco use (# tins/day): No Frequency of alcohol use: Rare Drug Abuse: Marijuana Family History: Reviewed & Not Pertinent Patient has suicidal ideation: No Patient has homicidal ideation: No Renal/ Medical History: Denies: Hx Peritoneal Dialysis - Immunizations Hx Diphtheria, Pertussis, Tetanus Vaccination: Yes Review of Systems - Review of Systems Notes: Constitutional: Negative for fever. HENT: Negative for sore throat. Eyes: + Bilateral eye pain, + redness bilateral eyes, + photophobia Cardiovascular: Negative for chest pain. Respiratory: Negative for shortness of breath. Gastrointestinal: Negative for abdominal pain, vomiting or diarrhea. Genitourinary: Negative for dysuria. Musculoskeletal: Negative for back pain. Skin: Negative for rash. Neurological: Negative for headaches, weakness or numbness. 10 point ROS negative except as marked above and in HPI. Physical Exam - Vital signs Vitals: Temp Pulse Resp BP Pulse Ox 97.6 F 71 16 133/78 H 100 10/08/19 11:11 10/08/19 11:11 10/08/19 11:11 10/08/19 11:11 10/08/19 11:11 - Notes Notes: PHYSICAL EXAMINATION: Physical Exam: General: Well-nourished well-developed in no acute distress HEENT: NC/AT, pupils equal round and reactive to light, MM moist,nares clear, oropharynx clear, airway patent Sclera injected bilaterally, conjunctiva erythematous markedly injected, puffiness in the lower lid with tenderness to palpation of the bilaterally, fluorescein stain with a granular uptake bilateral, + iritis, bilateral photophobia. Neck: supple, no adenopathy, no masses. Good range of motion Lungs: clear, no wheezing, no rales no rhonchi CVS: Regular rate and rhythm no murmur gallop or rub Abdomen: Soft, active, nontender, no masses, no hepatosplenomegaly Ext: No edema, clubbing or cyanosis. Neuro: Alert and responsive, moving all 4 extremities on command, cranial nerves intact, no focal findings Skin: Intact no open lesions, no rash PSYCH: Normal mood, normal affect. - HEENT Visual acuity- Right eye: 0 Visual acuity- Left eye: 20/70 Visual acuity- Both eyes: 0 Course - Re-evaluation Re-evalutation: 10/08/19 12:15 Patient presents to the emergency department with bilateral eye pain and photophobia erythematous and injected. Bilateral iritis and conjunctivitis and lower lid swelling/blepharitis. Will begin on a TobraDex ointment, Medrol Dosepak, Keflex orally, and ibuprofen for pain. Also referring him to ophthalmology for follow-up on Friday if he has not shown any significant improvement by that time. Explained this to the patient and his significant other and they are in agreement with this plan. - Vital Signs Vital signs: Temp Pulse Resp BP Pulse Ox 97.6 F 71 16 133/78 H 100 10/08/19 11:11 10/08/19 11:11 10/08/19 11:11 10/08/19 11:11 10/08/19 11:11 Procedures - Eye Procedure Bilateral Time completed: 11:55 Fluorescein applied: Bilateral - Fluorescein staining of the eyes bilaterally revealing granular uptake diffusely in both eyes. Patient has a severe light sensitivity and obvious iritis symptoms. Discharge - Discharge Clinical Impression: Bilateral scleritis Bilateral conjunctivitis Qualifiers: Conjunctivitis type: blepharoconjunctivitis Condition: Good Disposition: HOME, SELF-CARE Instructions: Antibiotic Therapy ([facility]), Conjunctivitis ([facility]) Additional Instructions: You are diagnosed with conjunctivitis with blepharitis and scleritis. Please use the medications ointment 3 times a day and take the oral medications Keflex and prednisone as prescribed. I would like for you to see the specialist on M on for recheck. If your symptoms are worsening or you have other concerns you may return to the emergency department. Prescriptions: Prednisone [Deltasone 20 mg Tablet] 1 tab PO BID 5 Days #10 tablet Cephalexin Monohydrate [Keflex 500 mg Capsule] 500 mg PO Q6H 10 Days capsule Referrals: PETERSON MCKAY MD [ACTIVE STAFF] - Follow up as needed
[2019-10-08] MEDS ORDERED: TOBRAMYCIN SULFATE/DEXAMETH OPH OINTMENT 3.5 GM OU ONE (12:13)
[2019-10-08 12:56] VITALS: BP 132/72
== END 2019-10-08 12:56 | disposition home or self-care (01) ==
LOC: ER 11:00
DX: H15.003 Unspecified scleritis, bilateral (principal); H10.503 Unspecified blepharoconjunctivitis, bilateral; H20.9 Unspecified iridocyclitis; F17.200 Nicotine dependence, unspecified, uncomplicated; F12.10 Cannabis abuse, uncomplicated; Z91.012 Allergy to eggs; Z91.013 Allergy to seafood
CPT/HCPCS: 99283; J3490